=== PATIENT | female | born 1965 | race Caucasian/White ===

== ENCOUNTER 2019-02-21 06:54 | Emergency (ER) | payer BC ==
[~2019-02-21] VITALS: Ht 160 cm; Wt 81.2 kg
--- NOTE | 2019-02-21 07:00 | NUR ---
Received pt 53 yrsF FROM HOME C/O epegastric PAIN STERTED at 01 am this morining pain 4/10 abdomine soft none tender to touch dinenis hx any medicle problam no mediction at home examin by DR SWAIN ORDER WAS GIVEN BLOOD DROW AND SENT TO LAB MEDITION GIVEN SALAS
[2019-02-21] MEDS ORDERED: HORMONE REPLACEMENT (07:08)
[2019-02-21] MEDS ORDERED: DICYCLOMINE HCL LIQ 10 MG/5 ML UDC PO ONE (07:15)
[2019-02-21] MEDS ORDERED: MAG HYDROX/AL HYDROX/SIMETH 30 ML LIQUID UDC PO ONE (07:15)
[2019-02-21 07:41] LABS: BASOPHILS # (AUTO) 0.1 K/uL (0.0-8.0); BASOPHILS % (AUTO) 0.9 % (0.0-2.0); EOSINOPHILS # (AUTO) 0.1 K/uL (0.0-0.7); EOSINOPHILS % (AUTO) 0.7 % (0.0-7.0); HEMATOCRIT 44.4 % (31.2-41.9); HEMOGLOBIN 14.7 g/dL (10.9-14.3); LYMPHOCYTES # (AUTO) 1.8 K/uL (20.0-40.0); LYMPHOCYTES % (AUTO) 18.6 % (20.5-51.5); MEAN CORPUSCULAR HEMOGLOBIN 28.8 uug (24.7-32.8); MEAN CORPUSCULAR HGB CONC 33 g/dL (32.3-35.6); MEAN CORPUSCULAR VOLUME 87.3 fL (75.5-95.3); MONOCYTES # (AUTO) 0.6 K/uL (2.0-10.0); MONOCYTES % (AUTO) 6.5 % (0.0-11.0); NEUTROPHILS # (AUTO) 7.3 K/uL (1.8-8.9); NEUTROPHILS % (AUTO) 73.3 % (38.5-71.5); PLATELET COUNT (AUTO) 350 K/uL (179-408); RED BLOOD CELL COUNT(AUTO) 5.09 MIL/uL (3.63-4.92); WHITE BLOOD COUNT (AUTO) 9.9 K/uL (3.8-11.8)
[2019-02-21 07:42] LABS: CREATININE 0.7 mg/dL (0.6-1.3); POTASSIUM 3.6 mmol/L (3.5-5.1)
[2019-02-21] MEDS ORDERED: MAG HYDROX/AL HYDROX/SIMETH 30 ML LIQUID UDC ONE ×2 (07:44)
[2019-02-21] MEDS ORDERED: DICYCLOMINE HCL LIQ 10 MG/5 ML UDC ONE (07:45)
[2019-02-21 07:49] LABS: BILIRUBIN,DIRECT 0.1 mg/dL (0.0-0.2); BILIRUBIN,TOTAL 0.4 mg/dL (0.2-1.0); TOTAL PROTEIN, SERUM 7.3 g/dL (6.4-8.2)
[2019-02-21] MEDS ORDERED: ONDANSETRON ODT 4 MG TAB.RAPDIS SL ONE (08:15)
--- NOTE | 2019-02-21 08:15 | NUR ---
c/o nausea and vomiting zofran 4 mg dot given and us of abdomin order
[2019-02-21] MEDS ORDERED: ONDANSETRON HCL 4 MG TABLET ONE (08:17)
[2019-02-21] MEDS ORDERED: ONDANSETRON ODT 4 MG TAB.RAPDIS ONE (08:18)
--- NOTE | 2019-02-21 08:58 | NUR ---
amblate to [facility] HAD BM NORMAL US AT BED SIDE C/O ABDOMINAL PAIN 11/01 DR KATHLEEN PEREZ
--- NOTE | 2019-02-21 09:25 | NUR ---
abdomial us done us spook with dr bennett aware about result dr. bennett spook with pt and update result pt refused pain mediction now d/c instraction given to pt fully and verblized understood us result and cd given to pt c/o abdominal discomfort 06/01
[2019-02-21 09:46] VITALS: BP 148/80
== END 2019-02-21 09:35 | disposition home or self-care (01) ==
LOC: ER 07:08
DX: R07.89 Other chest pain (principal); E78.5 Hyperlipidemia, unspecified; Z79.899 Other long term (current) drug therapy
CPT/HCPCS: 36415; 70030-TC; 71045; 83690; 85025; 93005; A4663; Q0162